=== PATIENT | male | born 1940 | race Caucasian/White ===

== ENCOUNTER → 2021-07-09 | Outpatient (CLI) | payer MEDICARE | LOC: KOH-I 13:39 | DX: M50.021 Cervical disc disorder at C4-C5 level with myelopathy (principal) | CPT/HCPCS: 72141; 72146 ==

== ENCOUNTER → 2021-09-11 | Outpatient (CLI) | payer MEDICARE, OTHER | LOC: KOH-I 09:58 | DX: M51.16 Intervertebral disc disorders with radiculopathy, lumbar region (principal); M48.061 Spinal stenosis, lumbar region without neurogenic claudication; I71.4 Abdominal aortic aneurysm, without rupture | CPT/HCPCS: 72148 ==